=== PATIENT | female | born 1955 | race Caucasian/White ===

== ENCOUNTER 2017-06-29 11:04 | Emergency (ER) | payer OTHER, MEDICAID ==
[2017-06-29 11:27] VITALS: BP 100/86; PULSE 96; RESP 20; TEMP 98.2; O2SAT 96
[2017-06-29] MEDS ORDERED: IPRATROPIUM/ALBUTEROL 3 ML DEYVIAL IH ONE (12:00)
[2017-06-29] MEDS ORDERED: AZITHROMYCIN 250 MG TAB PO ONE (12:00)
--- NOTE | 2017-06-29 12:25 | EDPHY ---
General - History Smoking Status: Never smoked Narrative: CHIEF COMPLAINT: Cough and cold-like symptoms HISTORY OF PRESENT ILLNESS: Patient presents with complaints of cough and cold-like symptoms. This originally started on or Tuesday. She started feeling sick on with some runny nose Tuesday morning. She then developed sore throat on Tuesday a cough on Tuesday. It has been a productive cough. She feels those getting worse because she is trying to move. She has tried her albuterol with no improvement. She has tried [id number]-[id number] medications with no improvement. She has no chest pain but she does have a painful cough. She has no vomiting. No abdominal pain. No urinary complaints. No rash or lesions. No neck pain or stiffness. No headache. No body aches, fevers or chills. No myalgias. She does not think she has the flu. No other associated complaints or modifying factors. REVIEW OF SYSTEMS: Ten systems reviewed and are negative unless otherwise noted in the HPI PCP: None currently. She is moving to [place] SPECIALISTS: None currently PAST MEDICAL HISTORY: Asthma, neuropathy, anxiety PAST SURGICAL HISTORY: No recent surgeries SOCIAL HISTORY: Nonsmoker FAMILY HISTORY: Noncontributory EXAMINATION General Appearance: Alert, no distress, anxious Head: normocephalic, atraumatic Eyes: Pupils equal and round, no conjunctival pallor or injection ENT, Mouth: Mucous membranes moist. Airway patent. No erythema or edema Neck: Normal inspection, supple, non-tender Respiratory: Mild wheezing or rhonchi. No crackles. No diminishment. No retractions or distress Cardiovascular: Regular rate and rhythm. No murmur Gastrointestinal: Abdomen is soft and nontender Back: non-tender, no bony abnormalities Neurological: A&O, nonfocal, normal gait Skin: Warm and dry, no rash. No petechiae or purpura Extremities: Nontender, no pedal edema Psychiatric: Mood and affect normal DIFFERENTIAL DIAGNOSES: Including but not limited to bronchitis, pneumonia, influenza, bronchiolitis, upper respiratory infection MDM: 12:05 p.m. Several days duration of cough with preceding runny nose, rhinorrhea and coryza. She has no chest pain. No flu-like symptoms otherwise. She appears to have bronchitis versus community-acquired pneumonia. I have ordered DuoNeb treatment and chest x-ray. She is in no acute distress with completely normal vital signs. 12:25 p.m. X-ray has been read as no acute findings. No evidence of pneumonia. I will treat her for the possibility of bacterial bronchitis given the duration of her symptoms. She is resting comfortably in no acute distress. First dose of Zithromax given here. I will discharge her home with continuation of Zithromax , her previously prescribed albuterol, new prescription for Tessalon Perles and short course of codeine. 12:35 p.m. I attempted to discuss this discharge plan with the patient she became very upset with me. She was asking for "I need specific criteria for when I can move." I attempted to discuss with her that she is symptomatic and is able to do what she feels is tolerable. This was not acceptable to her. She is asking for multiple 2nd opinions. She would like someone to provide specific criteria for when she could begin moving again. She says she does not feel safe moving her belongings up and down the stairs with her cough. I informed her that I am happy to provide a note to her landlord that she should not move for the next 2 days or until she feels well enough to do so. This was not satisfactory to her. She wants to speak to someone else. I am trying to contact case management to help discuss this with her. I feel that this is completely a social scenario and not medical related at this time. She is well-appearing with normal vital signs, and she is stable for discharge home from medical standpoint with acute bronchitis. SUPERVISION: This patient was independently evaluated without direct involvement of or examination by the attending physician. (Joon Barajas) Medical Decision Making: I did not see this patient while she was in the emergency department. However her care was discussed with the PA while the patient was in the department. I agree with treatment plan and management (Omar Lutz) - Objective Vital Signs: Initial Vital Signs Temperature (C) 36.8 C 06/29/17 11:19 Heart Rate 96 06/29/17 11:19 Respiratory Rate 20 06/29/17 11:19 Blood Pressure 100/86 H 06/29/17 11:19 O2 Sat (%) 96 06/29/17 11:19 O2 Delivery Mode Room Air Allergies/Adverse Reactions: No Known Allergies Allergy (Unverified 06/29/17 11:16) Home Medications: Medication Instructions Recorded Adderall 20 mg (*) 06/29/17 Albuterol 06/29/17 Aspirin 06/29/17 Azithromycin [Zithromax] 250 mg PO DAILY #4 tab 06/29/17 Bentyl 10 MG (*) 06/29/17 Benzonatate [Tessalon Pearles (RX)] 100 mg PO Q8 PRN #15 cap 06/29/17 Codeine/Promethazine [Phenergan W/ 5 ml PO Q6H PRN #120 ml 06/29/17 Codeine Syrup] Coreg 06/29/17 Dilaudid 06/29/17 Gabapentin 06/29/17 Prazosin HCl 06/29/17 Trileptal 06/29/17 Xanax 06/29/17 traMADol 06/29/17 traZODone 06/29/17 Medications Given: Discontinued Medications Albuterol/Ipratropium (Duoneb) 3 ml IH EDNOW ONE Stop: 06/29/17 12:01 Last Admin: 06/29/17 12:18 Dose: 3 ml Azithromycin (Zithromax) 500 mg PO EDNOW ONE PRN Reason: Protocol Stop: 06/29/17 12:01 Last Admin: 06/29/17 12:17 Dose: 500 mg Departure - Departure Disposition: Home, Routine, Self-Care Clinical Impression: Acute bronchitis Condition: Good Instructions: Acute Bronchitis (ED) Additional Instructions: 1. Medications as prescribed to completion 2. Contact her insurance company to find a new physician in your new location 3. ED precautions as discussed Referrals: Lul Padilla MD [Medical Doctor] - As per Instructions Prescriptions: Azithromycin [Zithromax] 250 mg PO DAILY #4 tab Benzonatate [Tessalon Pearles (RX)] 100 mg PO Q8 PRN #15 cap PRN Reason: Cough, Mild Codeine/Promethazine [Phenergan W/ Codeine Syrup] 5 ml PO Q6H PRN #120 ml PRN Reason: Cough, Moderate
== END 2017-06-29 13:05 | disposition home or self-care (01) ==
DX: J20.9 Acute bronchitis, unspecified (principal); J45.909 Unspecified asthma, uncomplicated; Z79.82 Long term (current) use of aspirin

== ENCOUNTER 2017-07-28 08:29 | Inpatient (IN) | payer OTHER, MEDICAID ==
[2017-07-28] MEDS ORDERED: NALOXONE HCL 2 MG/2 ML SYR IVP ONE (08:48)
[2017-07-28] MEDS ORDERED: NALOXONE HCL 0.4 MG/ML INJ ONE (08:49)
[2017-07-28 08:50] LABS: PLATELET COUNT 277 10^3/uL (150-400)
[2017-07-28] MEDS ORDERED: NALOXONE HCL 0.4 MG/ML INJ IVP ONE ×2 (08:50→11:34)
--- NOTE | 2017-07-28 08:51 | EDPHY ---
H & P Time Seen by Provider: 07/28/17 08:33 HPI/ROS: CHIEF COMPLAINT: Altered mental status, presumed overdose HISTORY OF PRESENT ILLNESS: The patient is brought into the emergency department with altered mental status from a presumed overdose. She was found in a bathroom at the [facility], [place] with multiple pill bottles around her. Paramedics reported that she had a prior history of overdose. The patient is obtunded and unable to provide much history. She was not given any medications by EMS prior to arrival. The patient had approximately 40 to alprazolam missing from a recently filled prescription. She also had an empty bottle of Flexeril and Dilaudid which were filled that an earlier date. REVIEW OF SYSTEMS: A comprehensive 10 point review of systems is unobtainable secondary to altered mental status Source: EMS Exam Limitations: Clinical condition - Medical/Surgical History Hx Asthma: Yes Hx Chronic Respiratory Disease: No Hx Diabetes: Yes Hx Cardiac Disease: Yes Hx Renal Disease: No Hx Cirrhosis: No Hx Alcoholism: No Hx HIV/AIDS: No Hx Splenectomy or Spleen Trauma: No Other PMH: COLOSTOMY, IBS, TAKING OPIATES TO DECREASE MOTILITY, PELVIC FLOOR DISFUNCTION, cad, mi 2007, CARDIAC STENTS, DEPRESSION, ATYPICAL BIPOLAR, TBI, DM 2 - Social History Smoking Status: Never smoked - Physical Exam Exam: General Appearance: Somnolent, responds to painful stimuli Eyes: Miotic pupils, reactive ENT, Mouth: Dry mucous membranes Respiratory: There are no retractions, lungs are clear to auscultation Cardiovascular: Regular rate and rhythm Gastrointestinal: Abdomen is soft and nontender, no masses, bowel sounds normal Neurological: Withdrawals to painful stimuli Skin: Warm and dry, no rashes Musculoskeletal: Neck is supple nontender Extremities: symmetrical, full range of motion Constitutional: Initial Vital Signs O2 Sat (%) 100 07/28/17 08:34 O2 Delivery Mode Nasal Cannula O2 (L/minute) 2 Allergies/Adverse Reactions: No Known Allergies Allergy (Unverified 06/29/17 11:16) Home Medications: Medication Instructions Recorded Adderall 20 mg (*) 06/29/17 Albuterol 06/29/17 Aspirin 06/29/17 Azithromycin [Zithromax] 250 mg PO DAILY #4 tab 06/29/17 Bentyl 10 MG (*) 06/29/17 Benzonatate [Tessalon Pearles (RX)] 100 mg PO Q8 PRN #15 cap 06/29/17 Codeine/Promethazine [Phenergan W/ 5 ml PO Q6H PRN #120 ml 06/29/17 Codeine Syrup] Coreg 06/29/17 Dilaudid 06/29/17 Gabapentin 06/29/17 Prazosin HCl 06/29/17 Trileptal 06/29/17 Xanax 06/29/17 traMADol 06/29/17 traZODone 06/29/17 Medical Decision Making - Diagnostics EKG Interpretation: EKG: Complete interpretation has been separately recorded in the [facility] archive. Summary impression: Sinus rhythm, rate 80 ED Course/Re-evaluation: The patient was placed on a cardiac catheterization technologist. She had an IV established he received supplemental oxygen. Given her miosis and altered mental status with possible narcotic ingestion she was given 0.4 mg of Narcan. She responded to IV Narcan with only slight improvement in her mentation. Th patient was placed on an M1 psychiatric hold by the police department prior to arrival. I did contact the police lieutenant patrol who head noted on the M1 psychiatric hold the patient has a history of suicidal ideation. She reportedly was enrolled as a student at the [facility], [place] in did make a telephone call to the police department about a month ago stating that she was going to perform an activity which would get her shot by the police. At that point time they were unable to make contact with the patient. The patient was observed in the emergency department for 2.5 hr and still continues to have fairly significant somnolence. Given her likely alprazolam ingestion I do feel she should be admitted for observation. Consultation was made with Dr. Blanca from the hospitalist service who will admit the patient. Differential Diagnosis: Differential diagnosis considered includes intentional overdose, accidental overdose, respiratory depression, dehydration, metabolic abnormality, arrhythmia Critical Care Time: Critical care time exclusive of procedures and exclusive of the PA's time was 35 minutes, performed by myself, Leobardo Danielle MD. The patient presents to the ED with altered mental status, somnolence in the setting of a polysubstance overdose. The patient is on M1 psychiatric hold. She will require admission to the intensive care unit given her altered mental status and mild respiratory depression. - Data Points Laboratory Results: Laboratory Results 07/28/17 08:30 07/28/17 08:30 07/28/17 07/28/17 07/28/17 10:18 08:30 08:30 WBC 6.75 10^3/uL 10^3/uL (3.80-9.50) RBC 5.24 10^6/uL 10^6/uL (4.18-5.33) Hgb 15.6 g/dL g/dL (12.6-16.3) Hct 48.6 % H % (38.0-47.0) MCV 92.7 fL fL (81.5-99.8) MCH 29.8 pg pg (27.9-34.1) MCHC 32.1 g/dL L g/dL (32.4-36.7) RDW 14.6 % % (11.5-15.2) Plt Count 277 10^3/uL 10^3/uL (150-400) MPV 9.8 fL fL (8.7-11.7) Neut % (Auto) 36.4 % L % (39.3-74.2) Lymph % (Auto) 41.0 % % (15.0-45.0) [place] % (Auto) 9.5 % % (4.5-13.0) Eos % (Auto) 11.4 % H % (0.6-7.6) Baso % (Auto) 1.3 % % (0.3-1.7) Nucleat RBC Rel Count 0.0 % % (0.0-0.2) Absolute Neuts (auto) 2.45 10^3/uL 10^3/uL (1.70-6.50) Absolute Lymphs (auto) 2.77 10^3/uL 10^3/uL (1.00-3.00) Absolute Monos (auto) 0.64 10^3/uL 10^3/uL (0.30-0.80) Absolute Eos (auto) 0.77 10^3/uL H 10^3/uL (0.03-0.40) Absolute Basos (auto) 0.09 10^3/uL 10^3/uL (0.02-0.10) Absolute Nucleated RBC 0.00 10^3/uL 10^3/uL (0-0.01) Immature Gran % 0.4 % % (0.0-1.1) Immature Gran # 0.03 10^3/uL 10^3/uL (0.00-0.10) Sodium 140 mEq/L mEq/L (135-145) Potassium 4.8 mEq/L mEq/L (3.5-5.2) Chloride 102 mEq/L mEq/L (97-110) Carbon Dioxide 24 mEq/l mEq/l (22-31) Anion Gap 14 mEq/L mEq/L (8-16) BUN 20 mg/dL mg/dL (7-23) Creatinine 0.8 mg/dL mg/dL (0.6-1.0) Estimated GFR > 60 Glucose 110 mg/dL H mg/dL (70-100) Calcium 9.7 mg/dL mg/dL (8.5-10.4) Salicylates < 1.0 mg/dL L mg/dL (2.0-20.0) Urine Opiates Screen NEGATIVE (NEGATIVE) Acetaminophen < 10 mcg/mL L mcg/mL (10-30) Urine Barbiturates NEGATIVE (NEGATIVE) Ur Phencyclidine Scrn NEGATIVE (NEGATIVE) Ur Amphetamine Screen NEGATIVE (NEGATIVE) U Benzodiazepines Scrn NON-NEGATIVE H (NEGATIVE) Urine Cocaine Screen NEGATIVE (NEGATIVE) U Marijuana (THC) Screen NEGATIVE (NEGATIVE) Ethyl Alcohol < 10 mg/dL mg/dL (0-10) Medications Given: Discontinued Medications Naloxone HCl (Narcan) 0.4 mg IVP EDNOW ONE Stop: 07/28/17 08:51 Last Admin: 07/28/17 08:51 Dose: 0.4 mg Departure - Departure Disposition: [facility] Clinical Impression: Respiratory depression, Overdose Condition: Fair Referrals: NONE *PRIMARY CARE P,. [Primary Care Provider] - As per Instructions
--- NOTE | 2017-07-28 09:00 | CPEKG ---
Heart Rate: 80 RR Interval: 750 P-R Interval: 132 QRSD Interval: 90 QT Interval: 412 QTC Interval: 476 P [place]: 45 QRS [place]: 68 T Wave [place]: -15 EKG Severity - BORDERLINE ECG - EKG Impression: SINUS RHYTHM EKG Impression: BORDERLINE T ABNORMALITIES, INFERIOR LEADS Electronically Signed By: Leobardo Danielle 28-Jul-2017 09:21:50
[2017-07-28] MEDS ORDERED: ONDANSETRON DISINTEGRATING 4 MG TAB PO PRN (11:35)
[2017-07-28] MEDS ORDERED: ONDANSETRON 4 MG/2 ML VIAL IVP PRN (11:35)
[2017-07-28] MEDS ORDERED: ACETAMINOPHEN 325 MG TAB PO PRN (11:35)
[2017-07-28] MEDS ORDERED: NS 1,000 ML IV SCH (11:45)
--- NOTE | 2017-07-28 11:54 | ASMTLACE ---
JUAN DIEGO Acuity / Level of Answers: Yes Care: Did the patient have an inpatient admission? # of Emergency department Answers: 1-2 visits in the last 6 months Social determinants Answers: History of substance abuse (ETOH, street drugs, prescription drugs, etc.) Mental health diagnosis (anxiety, depression, pers onality disorders, etc.) Score: 10 Date Signed: 07/28/2017 11:53 AM Electronically Signed By:Chloe Chaves RN
--- NOTE | 2017-07-28 12:08 | GHP ---
[f rep st] HISTORY AND PHYSICAL DATE OF ADMISSION: 07/28/2017 HISTORY OF PRESENT ILLNESS: The patient is a 62-year-old female with chronic pain and complex medica l history, who presents to the emergency department after being found down in a bathroom at , it so unds like she had recently been a student there and then had reached out to campus regarding conflict s with the police. They could not find her at that point. She was found today with multiple pill jer ttles around her including a recently filled Xanax that was empty. There were 40 missing. She also had an empty bottle of Flexeril and Dilaudid. In the emergency department she was obtunded on arrival, received Narcan, at which point she became a lert and argumentative and then is falling back asleep. When I see her she offers no meaningful hist ory. Her pupils are pin-point. She does not withdraw to pain. Her respiratory rate is 7. She appe ars to be defending her airway. She appears to be sleeping comfortably. REVIEW OF SYSTEM: Complete 10-point review of systems is unobtainable secondary to altered mental st atus. PAST MEDICAL HISTORY: Colostomy, IBS, apparently takes opiates to decrease motility. Pelvic floor d ysfunction. History of MD in 2006 with stents. Depression. Atypical bipolar traumatic brain injury . Type 2 diabetes. ALLERGIES: No known drug allergies. HOME MEDICATIONS: Appear to be Adderall, albuterol, aspirin, azithromycin, Bentyl, Tessalon Perles, Phenergan with codeine, Coreg, Dilaudid, gabapentin, Prazosin, tramadol, trazodone, Trileptal, Xanax. SOCIAL HISTORY: Unobtainable. FAMILY HISTORY: Unobtainable. PHYSICAL EXAM: VITAL SIGNS: Temperature 35.4, now 36.3. Blood pressure 104/71, pulse 80, breathing 7 to 15 times a minute, 100% on 2 L. GENERAL: No acute distress. Sleeping, essentially unarousable . HEENT: Pupils are pinpoint but reactive. Sclerae are anicteric. Oropharynx is clear. Mucous mem branes are moist. NECK: Supple. No lymphadenopathy or JVD. LUNGS: Clear to auscultation anterola terally. HEART: S1, S2. Not tachycardic. ABDOMEN: Soft, nontender, nondistended. LOWER EXTREMIT IES: Without edema. Calves are nontender. SKIN: Without rash. NEUROLOGIC: Notable for an obtunded patient. LABS: White count is 6.75, hematocrit 48.6, platelets are 277,000. Sodium 140, potassium 4.8, chlor sabra 102, bicarb 24, BUN 20, creatinine 0.8, glucose 110. Tox screen is negative for benzodiazepines. Ethanol level is negative. EKG interpreted by me, shows sinus with normal axis and intervals. The QT interval is 412. I have discussed the case with Dr. Ceferino Daneille. ASSESSMENT/PLAN: A 62-year-old female, polysubstance overdose and obtundation. 1. Polysubstance overdose. The patient has a normal QT. She does not have a metabolic acidosis. I think the motorcoach driver of her clinical toxidrome is opiates augmented by the muscle relaxants and benzodia zepines. Will follow her clinically. 2. Opiate overdose. Will perform EEG given her depressed respiratory rate, she may be a candidate f or intubation overnight. Will follow. 3. History of coronary disease. Her EKG is without ischemic changes. 4. Question suicide attempt. Patient will be placed on an M1 hold when she is more alert. 5. Prophylaxis, pharmacologic prophylaxis as indicated. 6. Disposition: ICU. Forty minutes critical care spent on admission of this patient. /[id number]/MODL
--- NOTE | 2017-07-28 16:16 | PDMN ---
Medical Necessity Medical necessity: Pt meets IP criteria per MD; est los >2 mn for eval/tx of polysubstance overdose r/t possible suicide attempt; admit to ICU for close monitoring, possible intubation & M1 hold; hx colostomy, MS, depression, anxiety , TBI; per H&P & order 07/28/17
[2017-07-28] MEDS ORDERED: ETOMIDATE 40 MG/20 ML INJ ONE (18:34)
[2017-07-28] MEDS ORDERED: ETOMIDATE 40 MG/20 ML INJ IVP ONE (18:34)
--- NOTE | 2017-07-28 19:20 | GCON ---
[f rep st] CONSULTATION CRITICAL CARE CONSULT DATE OF CONSULTATION: 07/28/2017 HISTORY OF PRESENT ILLNESS: This patient is a 62-year-old female with apparent history of chronic pa in and irritable bowel syndrome, who was found down in a bathroom at . She recently had filled a b ottle of Xanax, which was with her when she was found, and it was empty. She also had an empty bottl e of Flexeril and Dilaudid. Her intentions were unknown at this time. She did receive Narcan in the emergency department, at which point she had some response but easily fell back asleep. She was jung ble to provide any significant history. She was placed on BiPAP and brought up into the intensive ca re unit. An arterial blood gas showed a pCO2 of 60 with minimal change after followup ABG was perfor med. I was called to the bedside for airway control. REVIEW OF SYSTEMS: Otherwise unobtainable. PAST MEDICAL HISTORY: Includes: 1. Irritable bowel syndrome. 2. Chronic opiate dependency. 3. Pelvic floor dysfunction. 4. Coronary artery disease with an [place] in 2006. 5. Depression. 6. Traumatic brain injury. 7. Diabetes. PAST SURGICAL HISTORY: Includes coronary stents and a colostomy in the past. SOCIAL HISTORY: Unobtainable at this time. FAMILY HISTORY: Unobtainable at this time. HOME MEDICATIONS: Include Adderall, albuterol, aspirin, azithromycin, Bentyl, Tessalon, Phenergan wi th codeine, Coreg, Dilaudid, gabapentin, prazosin, tramadol, trazodone, Trileptal and Xanax. PHYSICAL EXAMINATION: VITAL SIGNS: On arrival, her blood pressure was 95/48 with a heart rate of 80 , respirations of 14 on BiPAP with an oxygen saturation of 100%. GENERAL: She was unresponsive and did not respond to deep oral suctioning. HEENT: Pupils were equally round and reactive to light. M ucous membranes are moist without erythema or exudate. NECK: Supple, without adenopathy or jugular vein distention. RESPIRATORY: Breath sounds were clear to auscultation bilaterally without wheezes, rubs or rales. HEART: Regular rate and rhythm without murmurs, rubs, gallops. ABDOMEN: Soft, non tender, nondistended with hypoactive bowel tones. EXTREMITIES: No clubbing, cyanosis, or edema. NE UROLOGIC: Exam is notable for diffuse unresponsiveness, but no cranial nerve deficits. SKIN: Warm and dry without rash. OBJECTIVE DATA: Includes a white count of 6.7, hematocrit 48.6, platelets of 277. An arterial blood gas drawn at 1158 today showed a pH 7.28, pCO2 60, PO2 76, with an oxygen saturation of 93%, and bic arb 27. Repeat blood gas drawn at 1756 shows pH 7.31, pCO2 56, PO2 119, bicarb 28, sat 98% on BiPAP at 40%. Basic metabolic panel was unremarkable. Urinary tox screen showed benzos only. Ethyl alcoh ol was negative. A chest x-ray is pending at this time. ASSESSMENT AND PLAN: 1. Apparent polysubstance overdose with some reaction to Narcan, but mostly benzodiazepine. Because of concerns over seizure disorder, flumazenil was deemed inappropriate by hospitalist service. Katy use of her inability to protect her airway and ongoing hypercapnic respiratory failure, she was intub ated, dictated under separate procedure. 2. Marginal blood pressure. At this point, she does not require any intervention, but we will start with intravenous fluids as needed. 3. Over-sedation, presume from her polysubstance overdose. We will continue to monitor for signs of improvement, using propofol if necessary to tolerate the ventilator. /[id number]/MODL
[2017-07-28] MEDS ORDERED: ALTEPLASE 2 MG VIAL IVP PRN (19:38)
--- NOTE | 2017-07-28 20:50 | GPN ---
[f rep st] PROCEDURE NOTE DATE OF PROCEDURE: 07/28/2017 PROCEDURE: Emergent intubation. INDICATION: Airway protection. Consent was waived due to the emergent nature of the procedure. Conscious sedation consisted of only 20 mg of IV etomidate. The patient tolerated this well without difficulty. A 7.5 endotracheal tube was placed after 2 attempts. The first attempt resulted in esophageal intuba tion. There were no untoward effects including oxygen saturation. This was recognized immediately. The tube was removed. A 2nd attempt was made after giving 20 mg of etomidate with good visualizatio n of the vocal cords which appeared to be moving normally and no evidence of trauma. There was appro priate tube condensation, color change on capnography and equal breath sounds bilaterally with an oxy gen saturation of 100% and no hypotension. A chest x-ray is pending at this time. /[id number]/MODL
[2017-07-28] MEDS: FAMOTIDINE 20 MG/NACL 50 ML IV SCH (21:53)
[2017-07-28] MEDS: CHLORHEXIDINE GLUCONATE 15 ML UDL PO SCH (21:53)
[2017-07-29] MEDS: PROPOFOL/EMULSION 100 ML IV SCH ×2 (02:05→09:31)
[2017-07-29 05:44] LABS: PLATELET COUNT 199 10^3/uL (150-400)
[2017-07-29] MEDS: CHLORHEXIDINE GLUCONATE 15 ML UDL PO SCH ×2 (07:26→20:47)
[2017-07-29] MEDS: FAMOTIDINE 20 MG/NACL 50 ML IV SCH ×2 (09:31→21:47)
[2017-07-29] MEDS: ENOXAPARIN 40 MG/0.4 ML SYR SC SCH (09:31)
--- NOTE | 2017-07-29 09:39 | HOSPPROG ---
Hospitalist Progress Note Assessment/Plan: 62 yo F w polysubstance overdose and respiratory failure resp failure: predominantly for airway issues but also for acute hypercarbic resp failure hold sedation and spontaneous breathing trial this AM cxr OK suicide attempt: M1 hold once extubated proph: lmwh cad: restart asa when taking po ekg non ischemic dispo: inpt 35 min crit care time Subjective: intubated overnight given continued somnolence and failure to protect her airway. case d/w dr villareal. cxr this AM w no infiltrate (interp by me) Objective: Vital Signs Temp Pulse Resp BP Pulse Ox 36.4 C 96 18 119/69 99 07/28/17 18:23 07/29/17 08:32 07/29/17 08:32 07/29/17 07:00 07/29/17 08:32 Laboratory Results 07/29/17 05:30 07/29/17 05:30 07/28/17 07/29/17 07/30/17 05:59 05:59 05:59 Intake Total 2209 Output Total 975 Balance 1234 - Physical Exam Constitutional: other (intubated, sedated. opens eyes to voice) Eyes: PERRL, anicteric sclera Ears, Nose, Mouth, Throat: moist mucous membranes, hearing normal Cardiovascular: regular rate and rhythym, no murmur, rub, or gallop Respiratory: no respiratory distress, no rales or rhonchi Gastrointestinal: normoactive bowel sounds, soft, non-tender abdomen Genitourinary: pearson in urethra, No no bladder fullness Skin: warm, normal color Musculoskeletal: full muscle strength Neurologic: No AAOx3 Psychiatric: No interacting appropriately ICD10 Worksheet Patient Problems: Problems Problem Status Onset Overdose Acute Respiratory depression Acute
--- NOTE | 2017-07-29 11:37 | PDINTPN ---
Production Quality Analyst Progress Note Assessment/Plan: Assessment: Polysubstance OD: narcotics/benzodiazepines. Multiple visits this morning to assess level of consciousness, respiratory status. She was initially unresponsive, then became more responsive and agitated. Was extubated, and initially was verbally combative but is now resting quietly. Acute respiratory failure: Due to polysubstance overdose with sedating medications. Now able to protect airway and was extubated without difficulty. Chronic pain: Patient not complaining of pain currently. Plan: The patient is medically cleared from their overdose. Will ask TLC to evaluate. 07/29/17 11:37 07/29/17 11:40 Subjective: Patient agitated, wants to leave. Objective: Vital Signs Temp Pulse Resp BP Pulse Ox 36.4 C 87 18 142/78 H 100 07/28/17 18:23 07/29/17 10:00 07/29/17 10:00 07/29/17 10:00 07/29/17 10:00 Laboratory Results 07/29/17 05:30 07/29/17 05:30 07/28/17 07/29/17 07/30/17 05:59 05:59 05:59 Intake Total 2209 Output Total 975 Balance 1234 Physical Exam - Physical Exam General Appearance: alert, mild distress EENT: normal ENT inspection Neck: normal inspection Respiratory: lungs clear, normal breath sounds Cardiac/Chest: normal peripheral pulses, regular rate, rhythm, No edema Abdomen: normal bowel sounds, non-tender Skin: normal color, warm/dry Extremities: normal inspection Neuro/Psych: alert, normal mood/affect, oriented x 3 ICD10 Worksheet Patient Problems: Problems Problem Status Onset Overdose Acute Respiratory depression Acute
--- NOTE | 2017-07-29 12:29 | ASMTCMCOM ---
CM Note CM Note Notes: Pt daughter Crystal called to provide pt. information for psychiatrist. Dr. Bond [phone]. Pt Daughter can be contacted at [phone]. Pt and daughter are estranged. Date Signed: 07/29/2017 12:28 PM Electronically Signed By:Maverick Edwards LCSW
--- NOTE | 2017-07-29 15:56 | ASMTCMCOM ---
CM Note CM Note Notes: Please refer to [facility] Triage Liason evaluation note for a detailed history. Patient will likely discharge to [address] [place] [address] when bed available. CM will help faciliate transfer. Date Signed: 07/29/2017 03:55 PM Electronically Signed By:Flavia Mcgee RN
[2017-07-30 05:06] VITALS: RESP 18
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
[2017-07-30 09:44] VITALS: TEMP 98.4
[2017-07-30] MEDS: FAMOTIDINE 20 MG/NACL 50 ML IV SCH (10:15)
[2017-07-30] MEDS: CHLORHEXIDINE GLUCONATE 15 ML UDL PO SCH (10:15)
[2017-07-30] MEDS: ENOXAPARIN 40 MG/0.4 ML SYR SC SCH (10:15)
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
[2017-07-30 11:07] VITALS: BP 142/81; PULSE 111; O2SAT 93
--- NOTE | 2017-07-30 17:23 | ASDISCHSUM ---
Discharge Information Plan Status: Medically Cleared to Leave:07/29/2017 Discharge Date:07/30/2017 11:29 AM CM D/C Disposition:[facility] IP ADT D/C Disposition:[facility] Projected Discharge Date:07/30/2017 11:29 AM Transportation at D/C:ALS/BLS Discharge Delay Reason: Follow-Up Date:07/30/2017 11:29 AM Discharge Slot: Final Diagnosis: Placement Information Patient Contact Information Contact Name:MAI Relationship:Mynor Address: City: [facility] Phone: [facility] Code: Email: Financial Information Financial Class:Medicare Primary Plan Desc:MEDICARE INPATIENT Primary Plan Number:[id number] Secondary Plan Desc:MEDICAID [place] Secondary Plan Number:[id number] Assessment Information LACE LACE Acuity / Level of Answers: Yes Care: Did the patient have an inpatient admission? # of Emergency department Answers: 1-2 visits in the last 6 months Social determinants Answers: History of substance abuse (ETOH, street drugs, prescription drugs, etc.) Mental health diagnosis (anxiety, depression, pers onality disorders, etc.) Score: 10 Date Signed: 07/28/2017 11:53 AM Electronically Signed By:Chloe Chaves RN [facility] CM Progress Note CM Note CM Note Notes: Pt daughter Crystal called to provide pt. information for psychiatrist. Dr. Bond [phone]. Pt Daughter can be contacted at [phone]. Pt and daughter are estranged. Date Signed: 07/29/2017 12:28 PM Electronically Signed By:Maverick Edwards LCSW [facility] CM Progress Note CM Note CM Note Notes: Please refer to [facility] Triage Liason evaluation note for a detailed history. Patient will likely discharge to [address] [place] [address] when bed available. CM will help faciliate transfer. Date Signed: 07/29/2017 03:55 PM Electronically Signed By:Flavia Mcgee RN Intervention Information
== END 2017-07-30 11:29 | DRG 917 ==
LOC: EDUNIT# → EEVIPCON 11:35 → OBSVTOIN 11:35 → F2N 12:33
PROVIDERS: ADMIT Internal Medicine; ATTEND Internal Medicine
PROC: 0BH17EZ Insertion of Endotracheal Airway into Trachea, Via Natural or Artificial Opening (ICD-10-PCS; principal; 2017-07-28)
PROC: 5A1935Z Respiratory Ventilation, Less than 24 Consecutive Hours (ICD-10-PCS; principal; 2017-07-28)
PROC: 02HV33Z Insertion of Infusion Device into Superior Vena Cava, Percutaneous Approach (ICD-10-PCS; 2017-07-29)
DX: T42.4X2A Poisoning by benzodiazepines, intentional self-harm, initial encounter (principal); T48.1X2A Poisoning by skeletal muscle relaxants [neuromuscular blocking agents], intentional self-harm, initial encounter; T40.2X2A Poisoning by other opioids, intentional self-harm, initial encounter; J96.02 Acute respiratory failure with hypercapnia; F11.20 Opioid dependence, uncomplicated; G89.29 Other chronic pain; F32.9 Major depressive disorder, single episode, unspecified; E11.9 Type 2 diabetes mellitus without complications; I25.10 Atherosclerotic heart disease of native coronary artery without angina pectoris; I25.2 Old myocardial infarction; Z93.3 Colostomy status; Z95.5 Presence of coronary angioplasty implant and graft; Z87.820 Personal history of traumatic brain injury; Z59.0 Homelessness; Z79.82 Long term (current) use of aspirin; Z62.810 Personal history of physical and sexual abuse in childhood
CPT/HCPCS: 80305; 96374; C1751; G0480; J1650; J2310; J2704

== ENCOUNTER 2017-07-30 11:50 | Inpatient (IN) | payer OTHER, MEDICAID ==
[2017-07-30] MEDS ORDERED: LORazepam 0.5 MG TAB PO PRN ×2 (13:11→17:28)
[2017-07-30] MEDS ORDERED: ACETAMINOPHEN 325 MG TAB PO PRN (13:11)
[2017-07-30] MEDS ORDERED: MAGNESIUM HYDROXIDE 30 ML UDCUP PO PRN (13:11)
[2017-07-30] MEDS ORDERED: MAG HYDROX/AL HYDROX/SIMETH 30 ML UDCUP PO PRN (13:11)
[2017-07-30] MEDS ORDERED: NICOTINE POLACRILEX 2 MG GUM B PRN (13:11)
[2017-07-30] MEDS ORDERED: OLANZapine DISINTEGR 10 MG TAB PO PRN (13:11)
[2017-07-30] MEDS ORDERED: IBUPROFEN 800 MG TAB PO PRN ×2 (17:15→17:27)
[2017-07-30] MEDS ORDERED: ALBUTEROL 60 PUFFS/8 GM MDI IH PRN (17:15)
[2017-07-30] MEDS ORDERED: traZODone 50 MG TAB PO PRN (17:30)
[2017-07-30] MEDS ORDERED: IBUPROFEN 600 MG TAB PO PRN ×3 (17:35→18:00)
[2017-07-30] MEDS: GABAPENTIN 400 MG CAP PO SCH ×2 (18:12→20:37)
[2017-07-30] MEDS: DICYCLOMINE 10 MG CAP PO SCH ×2 (18:12→20:35)
[2017-07-30] MEDS: OXcarbazepine 300 MG TAB PO SCH (20:33)
[2017-07-30] MEDS: OMEGA-3 FATTY ACIDS 1,000 MG CAP PO SCH (20:36)
[2017-07-30] MEDS: CARVEDILOL 3.125 MG TAB PO SCH (20:36)
[2017-07-30] MEDS ORDERED: NON-FORMULARY NEW DRUG (Oxcarbazepine [Trileptal] 150 MG) PO SCH (21:00)
[2017-07-30] MEDS: BUDESONIDE 90 MCG MDI IH SCH (21:02)
[2017-07-30] MEDS ORDERED: NON-FORMULARY NEW DRUG (Gabapentin [Gabapentin 800 Mg] 800 MG) PO SCH (22:00)
[2017-07-30] MEDS ORDERED: GABAPENTIN 400 MG CAP PO SCH (22:00)
[2017-07-31] MEDS: MELATONIN 3 MG TAB PO PRN ×2 (00:12→23:01)
[2017-07-31] MEDS: DICYCLOMINE 10 MG CAP PO SCH ×5 (07:09→21:11)
[2017-07-31] MEDS: CHOLECALCIFEROL VIT D3 1,000 UNITS TAB PO SCH (08:54)
[2017-07-31] MEDS: MULTIVITAMINS 1 EACH TAB PO SCH (08:54)
[2017-07-31] MEDS: GABAPENTIN 400 MG CAP PO SCH ×3 (08:56→21:10)
[2017-07-31] MEDS: ASPIRIN EC 81 MG TAB PO SCH (08:56)
[2017-07-31] MEDS: OXcarbazepine 300 MG TAB PO SCH ×2 (08:56→09:03)
[2017-07-31] MEDS: BUDESONIDE 90 MCG MDI IH SCH ×2 (10:41→21:13)
[2017-07-31] MEDS ORDERED: DIPHENHYDRAMINE CREAM TP PRN (14:03)
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
[2017-07-31] MEDS: ALBUTEROL 200 PUFFS/18 GM MDI IH PRN (16:52)
[2017-07-31] MEDS: HYDROCORTISONE 1% CREAM TP PRN ×2 (19:16→21:25)
[2017-07-31] MEDS ORDERED: OXcarbazepine 300 MG TAB PO SCH (21:00)
[2017-07-31] MEDS ORDERED: traZODone 50 MG TAB PO SCH (21:00)
[2017-07-31] MEDS: OMEGA-3 FATTY ACIDS 1,000 MG CAP PO SCH (21:10)
[2017-07-31] MEDS: CARVEDILOL 3.125 MG TAB PO SCH (21:11)
[2017-08-01] MEDS: GABAPENTIN 400 MG CAP PO SCH ×3 (07:58→19:08)
[2017-08-01] MEDS: ASPIRIN EC 81 MG TAB PO SCH (07:58)
[2017-08-01] MEDS: CHOLECALCIFEROL VIT D3 1,000 UNITS TAB PO SCH (07:58)
[2017-08-01] MEDS: MULTIVITAMINS 1 EACH TAB PO SCH (07:58)
[2017-08-01] MEDS: BUDESONIDE 90 MCG MDI IH SCH ×2 (08:00→09:14)
[2017-08-01] MEDS: DICYCLOMINE 10 MG CAP PO SCH ×4 (08:07→18:47)
--- NOTE | 2017-08-01 08:32 | HOSPPROG ---
Hospitalist Progress Note Assessment/Plan: DIAGNOSES: -s/p polydrug overdose -acute resp failure resolved -hx of asthma, currently controlled well -HTN and tachycardia yesterday, unclear what was causing tachycardia at that time -hx of CAD, stents -mental health diagnoses: Have reviewed patient's chart and progress. She is requesting that she have pulmicort daily instead of bid, and this is reasonable. I have ordered this to daily. She would like to resume minipress and this is reasonable for her if it would be useful for dreams/PTSD. I will order this but would have the mental health team review this medicine for her. It was not specifically addressed in Dr Hopper 's note. I would only think this should be used ongoing if mental health team feels it is truly of benefit for her. I have reviewed her intake note here. It was recommended by Dr Hopper that she not use adderall due to her mental health issues and her history of coronary disease. I agree with the recommendation to NOT use adderall or similar medications for the same reasons. Her higher pulse and blood pressures yesterday would further argue against use of this medication. She states she disagrees with this recommendation. She does not seem to me to have very good insight related to her medical/ psychiatric issues. SUBJECTIVE: she is feeling physically well no sob no cough no pain no fever sxs OBJECTIVE: Did have fairly high BP last evening, as well as some tachycardia but these are resolved now no fever Exam: somewhat hyperactive, anxious no tremor resps easy lungs clear good air movement heart regular no edema Objective: Vital Signs Temp Pulse Resp BP Pulse Ox 36.9 C 86 18 130/74 H 97 08/01/17 06:00 08/01/17 06:00 08/01/17 06:00 08/01/17 06:00 08/01/17 06:00 - Time Spent With Patient Time Spent with Patient: greater than 25 minutes Time Spent with Patient: Greater than 25 minutes spent on this patients care, greater than 50% of time spent counseling, educating, and coordinating care regarding the above mentioned plan. ICD10 Worksheet Patient Problems: Problems Problem Status Onset Overdose Acute Respiratory depression Acute
[2017-08-01] MEDS: ARIPiprazole 2 MG TAB PO SCH (11:42)
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
[2017-08-01] MEDS ORDERED: PRAZOSIN HCL 1 MG CAP PO SCH (12:00)
[2017-08-01] MEDS: PRAZOSIN HCL 1 MG CAP PO SCH ×2 (15:51→18:47)
[2017-08-01] MEDS: MELATONIN 3 MG TAB PO PRN (18:47)
[2017-08-01] MEDS: OMEGA-3 FATTY ACIDS 1,000 MG CAP PO SCH (18:47)
[2017-08-01] MEDS: CARVEDILOL 3.125 MG TAB PO SCH (18:53)
[2017-08-01] MEDS: ALBUTEROL 200 PUFFS/18 GM MDI IH PRN (20:31)
[2017-08-01] MEDS: traZODone 50 MG TAB PO SCH ×2 (20:56→22:45)
[2017-08-01] MEDS ORDERED: CYCLOBENZAPRINE 10 MG TAB PO ONE (21:00)
[2017-08-02] MEDS: GABAPENTIN 400 MG CAP PO SCH ×3 (05:38→19:17)
[2017-08-02] MEDS: HYDROCORTISONE 1% CREAM TP PRN (08:05)
[2017-08-02] MEDS: PRAZOSIN HCL 1 MG CAP PO SCH ×3 (08:05→19:14)
[2017-08-02] MEDS: DICYCLOMINE 10 MG CAP PO SCH ×4 (08:05→19:17)
[2017-08-02] MEDS: MULTIVITAMINS 1 EACH TAB PO SCH (08:05)
[2017-08-02] MEDS: ARIPiprazole 2 MG TAB PO SCH (08:05)
[2017-08-02] MEDS: CHOLECALCIFEROL VIT D3 1,000 UNITS TAB PO SCH (08:06)
[2017-08-02] MEDS: ASPIRIN EC 81 MG TAB PO SCH (08:06)
[2017-08-02] MEDS: BUDESONIDE 90 MCG MDI IH SCH (08:09)
[2017-08-02] MEDS ORDERED: ALPRAZolam 0.5 MG TAB PO PRN (08:39)
[2017-08-02] MEDS ORDERED: traZODone 50 MG TAB PO SCH (08:39)
--- NOTE | 2017-08-02 08:44 | SOAPPROG ---
SOAP Progress Note Assessment/Plan: Assessment: Bipolar Disorder, I, Depressed with Mixed features PTSD Sedative Dependence (taken Xanax for many years), possible sedative withdrawal Personality Disorder - borderline traits History of CAD, coronary artery stents Chronic pelvic pain, history of neuropathy Colostomy History of multiple concussions Rule out Adjustment Disorder Rule out Personality Change from multiple concussions with impulsivity and mood lability Homeless, low income, no supports Patient on M-1 hold for overdose on PRN Flexeril, PRN Xanax, old Dilaudid, and Trazodone requiring medical care at [facility]. Patient endorses mixed Bipolar Disorder symptoms, PTSD symptoms, and Borderline PD symptoms. Patient may have impulsivity related to multiple concussions. Patient appears less irritable and less tangential, but with reduced sleep; denies SI. Patient has multiple stressors. Plan: Patient agrees to voluntary treatment SP-1 precautions Monitor mood stability, risk of self-harm Patient unwilling to retry [place] Continue Carvedilol and ASA for CAD Continue Gabapentin TID for Neuropathy Ostomy care consult Prazosin 1mg TID and Trazodone 200mg QHS (reduced) for PTSD. Discussed risk of hypotension, syncope. Monitor vitals BID Continue Abilify 2mg for mood stabilization Xanax 0.25mg QHS and 0.25mg PRN for chronic sedative dependence and possible withdrawal Check lipids, HgbA1c, TSH, B12 08/02/17 08:45 Subjective: CC: "I can't sleep without Xanax" Patient reports taking Xanax 0.25mg or 0.5mg at bedtime for many years and cannot sleep without it. Reports usually taking Trazodone 200mg at night as well. Reports continued irritability, agitation, and brief mood swings but reports feeling less hopeless than before. Reports goal is to attend cardiology appointment tomorrow and then stay in a retirement until she can rent a room using her SS income. Reports she has a bus pass for transportation. Denies suicidal thoughts but reports she was suicidal and overdoses prior to admission. Denies paranoia or AH. Endorses borderline PD symptoms but reports "I don't have Borderline Personality, my did.' Denies violent thoughts. Objective: Vital Signs Temp Pulse Resp BP Pulse Ox 36.6 C 83 14 142/72 H 95 08/02/17 00:00 08/02/17 00:00 08/02/17 00:00 08/02/17 00:00 08/02/17 00:00 Alert WF. Appears more calm today than yesterday. Speech RRR, brief yelling. Mood 'better but I can't sleep.' Affect briefly irritable. Thoughts organized , less tangential than yesterday. Denies SI or HI or AH or paranoia. Limited insight. Questionable judgment. - Time Spent With Patient Time Spent With Patient: 45 minutes - Pending Discharge Pending Discharge Within 48 Hours: Yes Pending Discharge Date: 08/04/17 Pending Discharge Time: 11:00 ICD10 Worksheet Patient Problems: Problems Problem Status Onset Sedative dependence Acute Personality disorder Acute Posttraumatic stress disorder Acute Bipolar disorder, unspecified Acute Respiratory depression Acute Overdose Acute
[2017-08-02] MEDS: CARVEDILOL 3.125 MG TAB PO SCH (16:58)
[2017-08-02] MEDS: MELATONIN 3 MG TAB PO PRN (19:15)
[2017-08-02] MEDS: OMEGA-3 FATTY ACIDS 1,000 MG CAP PO SCH (19:17)
[2017-08-02] MEDS ORDERED: ALPRAZolam 0.5 MG TAB PO SCH (21:00)
[2017-08-03] MEDS: GABAPENTIN 400 MG CAP PO SCH (05:46)
[2017-08-03 06:31] VITALS: BP 118/80; PULSE 94; RESP 14; TEMP 98.1; O2SAT 92
[2017-08-03] MEDS: CHOLECALCIFEROL VIT D3 1,000 UNITS TAB PO SCH (08:01)
[2017-08-03] MEDS: ASPIRIN EC 81 MG TAB PO SCH (08:01)
[2017-08-03] MEDS: ARIPiprazole 2 MG TAB PO SCH (08:01)
[2017-08-03] MEDS: DICYCLOMINE 10 MG CAP PO SCH (08:04)
[2017-08-03] MEDS: PRAZOSIN HCL 1 MG CAP PO SCH (08:07)
[2017-08-03] MEDS: BUDESONIDE 90 MCG MDI IH SCH (08:07)
[2017-08-03] MEDS: MULTIVITAMINS 1 EACH TAB PO SCH (08:07)
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
== END 2017-08-03 10:01 | disposition home or self-care (01) | DRG 885 ==
LOC: BBEH 11:50
PROVIDERS: ADMIT Psychiatry & Neurology Psychiatry; ATTEND Psychiatry & Neurology Psychiatry
DX: F31.60 Bipolar disorder, current episode mixed, unspecified (principal); F13.20 Sedative, hypnotic or anxiolytic dependence, uncomplicated; F43.10 Post-traumatic stress disorder, unspecified; F60.3 Borderline personality disorder; I25.10 Atherosclerotic heart disease of native coronary artery without angina pectoris; G89.29 Other chronic pain; R73.03 Prediabetes; E78.5 Hyperlipidemia, unspecified; Z93.3 Colostomy status; Z66 Do not resuscitate; J45.909 Unspecified asthma, uncomplicated; I10 Essential (primary) hypertension; Z95.5 Presence of coronary angioplasty implant and graft
CPT/HCPCS: 82607-90